=== PATIENT | female | born 1990 | race Caucasian/White ===

== ENCOUNTER 2021-03-27 10:01 | Inpatient (IN) ==
[2021-03-27] MEDS ORDERED: OXYTOCIN 10 UNIT/ML VIAL IM ONE (10:07)
[2021-03-27] MEDS ORDERED: CITRIC ACID/SODIUM CITRATE 30 ML UDCUP PO ONE (10:07)
[2021-03-27] MEDS ORDERED: FAMOTIDINE 20 MG/2 ML VIAL IV ONE (10:07)
[2021-03-27] MEDS ORDERED: LACTATED RINGERS 1,000 ML IV PRN (10:07)
[2021-03-27] MEDS ORDERED: OXYTOCIN/LR 30 UNIT/1,000 ML BAG IV ONE (10:07)
[2021-03-27 10:33] LABS: Basophils # 0.1 10*3/uL (0.0-0.2); Basophils % 0.4 % (0.0-0.8); Eosinophils # 0.1 10*3/uL (0.0-0.87); Eosinophils % 0.6 % (0.00-10.9); Hematocrit 33.1 VOL% (35.7-47.0); Immature Granulocytes % 1.3 %; Immature Granulocytes Absolute 0.22 #; Lymphocytes # 2.9 10*3/uL (1.4-4.0); Lymphocytes % 17.2 % (21.3-54.2); Mean Corpuscular HGB Conc 33.2 GM/DL (32-36); Mean Corpuscular Volume 86.6 FL (87-102); Mean Platelet Volume 10.8 FL (9.6-12.0); Monocytes % 4.2 % (1.7-12.7); Neutrophils % 76.3 % (38.7-73.9); Platelet Count 336 T/CUMM (130-400); Red Blood Count 3.82 MC/CUMM (3.8-5.5); Red Cell Distribution Width 16.1 % (9.3-17.3)
[2021-03-27 10:47] LABS: INR 0.9; PT Patient Result 10.3 SECS (10.5-12.0); Partial Thromboplastin Time 28.7 SECS (23.9-33.8)
[2021-03-27 10:50] LABS: Bilirubin,Direct < 0.100 MG/DL (0.0-0.20); Uric Acid 5.3 MG/DL (2.6-6.0)
[2021-03-27 10:54] LABS: Albumin 2.2 G/DL (3.4-5.0); Bilirubin,Total 0.4 MG/DL (0.20-1.00); Calcium 8.9 MG/DL (8.5-10.1); Potassium 4.1 MMOL/L (3.5-5.1); Total Protein 6.7 G/DL (6.4-8.2)
[2021-03-27] MEDS ORDERED: ceFAZolin 3,000 MG in SYRINGE 1 EACH IV ONE (11:00)
[2021-03-27 15:42] LABS: Cord Arterial Blood HCO3 21.8 MMOL/L
[2021-03-27 15:45] LABS: Cord Venous Blood HCO3 22.6 MMOL/L; Cord Venous Blood PCO2 47.2 MMHG; Cord Venous Blood PO2 25.2
[2021-03-27] MEDS ORDERED: ONDANSETRON 4 MG/2 ML VIAL ONE (15:48)
[2021-03-27] MEDS ORDERED: KETOROLAC 30 MG/1 ML VIAL ONE (15:48)
[2021-03-27] MEDS ORDERED: LACTATED RINGERS 2,000 ML IV ONE (15:48)
[2021-03-27] MEDS ORDERED: METOCLOPRAMIDE 10 MG/2 ML VIAL ONE (15:48)
[2021-03-27] MEDS ORDERED: PHENYLEPHRINE 1 MG/10 ML SYRINGE IV ONE (15:48)
[2021-03-27] MEDS ORDERED: SIMETHICONE CHEW 80 MG TABLET PO PRN (15:53)
[2021-03-27] MEDS ORDERED: ONDANSETRON 4 MG/2 ML VIAL IV PRN (15:53)
[2021-03-27] MEDS ORDERED: MAGNESIUM HYDROXIDE SUSP 30 ML UDCUP PO PRN (15:53)
[2021-03-27] MEDS ORDERED: ACETAMINOPHEN 325 MG TABLET PO PRN (15:53)
[2021-03-27] MEDS ORDERED: OXYTOCIN/LR 20 UNIT/1,000 ML BAG IV ONE (15:53)
[2021-03-27] MEDS ORDERED: RHO(D) IMMUNE GLOBULIN 300 MCG SYRINGE IM ONE (15:53)
[2021-03-27] MEDS ORDERED: LACTATED RINGERS 1,000 ML IV SCH (16:00)
[2021-03-27 16:39] LABS: Bilirubin,Urine Negative (Negative); Blood, Urine Negative (Negative); Glucose,Urine (UA) Negative (Negative); Hyaline Casts,Urine 1 /LPF (0-3); Ketones,Urine Negative (Negative); Mucus,Urine Occasional /LPF (Occasional); Nitrite,Urine Negative (Negative); Protein,Urine Negative; RBC,Urine <1 /HPF (0-4); Squamous Epithelial Cell,Urine Occasional /HPF (0-10); Urine Appearance CLEAR (Clear); Urine Color Yellow (Yellow); Urine Specific Gravity 1.021 (1.001-1.035); Urine Urobilinogen < 2.0 EU/DL (0.2-1.0)
[2021-03-27] MEDS: ACETAMINOPHEN 500 MG TABLET PO SCH (18:47)
[2021-03-27] MEDS: KETOROLAC 30 MG/1 ML VIAL IV SCH (22:10)
[2021-03-27] MEDS ORDERED: ENOXAPARIN 60 MG/0.6 ML SYRINGE SUBCUT SCH (22:28)
[2021-03-27] MEDS: DOCUSATE SODIUM 100 MG CAPSULE PO SCH (22:30)
[2021-03-28] MEDS: ACETAMINOPHEN 500 MG TABLET PO SCH ×2 (01:00→05:26)
[2021-03-28] MEDS ORDERED: LACTATED RINGERS 1,000 ML IV SCH (02:00)
[2021-03-28] MEDS: KETOROLAC 30 MG/1 ML VIAL IV SCH ×2 (04:00→10:44)
[2021-03-28 05:51] LABS: Basophils # 0.1 10*3/uL (0.0-0.2); Basophils % 0.5 % (0.0-0.8); Eosinophils # 0.1 10*3/uL (0.0-0.87); Eosinophils % 0.9 % (0.00-10.9); Hematocrit 28.6 VOL% (35.7-47.0); Hemoglobin 9.2 GM/DL (12.0-16.0); Immature Granulocytes % 0.5 %; Immature Granulocytes Absolute 0.07 #; Lymphocytes % 22.9 % (21.3-54.2); Mean Corpuscular HGB Conc 32.2 GM/DL (32-36); Mean Corpuscular Volume 88.8 FL (87-102); Neutrophils % 70.2 % (38.7-73.9); Platelet Count 246 T/CUMM (130-400); Red Blood Count 3.22 MC/CUMM (3.8-5.5); Red Cell Distribution Width 16.2 % (9.3-17.3)
[2021-03-28] MEDS ORDERED: METOCLOPRAMIDE 10 MG TABLET PO SCH (08:00)
[2021-03-28] MEDS: MULTIVITAMIN (PRENATAL) TABLET PO SCH (08:42)
[2021-03-28] MEDS: FERROUS SULFATE 325 MG TABLET PO SCH (08:42)
[2021-03-28] MEDS: ENOXAPARIN 60 MG/0.6 ML SYRINGE SUBCUT SCH (08:42)
[2021-03-28] MEDS: DOCUSATE SODIUM 100 MG CAPSULE PO SCH ×2 (08:42→20:29)
[2021-03-28] MEDS: IBUPROFEN 800 MG TABLET PO PRN (17:56)
[2021-03-29] MEDS: IBUPROFEN 800 MG TABLET PO PRN (03:22)
[2021-03-29] MEDS: MULTIVITAMIN (PRENATAL) TABLET PO SCH (09:17)
[2021-03-29] MEDS: DOCUSATE SODIUM 100 MG CAPSULE PO SCH (09:17)
[2021-03-29] MEDS: FERROUS SULFATE 325 MG TABLET PO SCH (09:17)
[2021-03-29] MEDS: ENOXAPARIN 60 MG/0.6 ML SYRINGE SUBCUT SCH (09:18)
[2021-03-29 11:11] VITALS: BP 143/70
== END 2021-03-29 13:00 | disposition home or self-care (01) | DRG 540 ==
LOC: N.LD 10:01 → N.OB 22:50
PROVIDERS: ADMIT Obstetrics & Gynecology; ATTEND Obstetrics & Gynecology
PROC: LDCSECT (ICD-10-PCS; 2021-03-27 15:00)